=== PATIENT | male | born 1985 | race Caucasian/White ===

== ENCOUNTER 2017-05-02 19:37 | Emergency (ER) | payer BC, OTHER ==
[~2017-05-02] VITALS: Ht 172.7 cm; Wt 90.1 kg
[2017-05-02 19:39] VITALS: BP 138/78; PULSE 110; TEMP 37.1; O2SAT 97; Ht 172.7 cm; Wt 90.1 kg
[2017-05-02] MEDS ORDERED: CEFDINIR 300 MG CAP PO STA (20:01)
[2017-05-02] MEDS ORDERED: CIPROFLOXACIN HCL 0.3% OP SOLN 2.5 ML BTL OP ONE (20:15)
[2017-05-02] MEDS ORDERED: CIPR0.3S OP (20:32)
[2017-05-02] MEDS ORDERED: CEFD300C2 PO (20:32)
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
== END 2017-05-02 20:47 | disposition home or self-care (01) ==
LOC: C.EDB 19:38 → C.EDD 20:47
DX: H66.90 Otitis media, unspecified, unspecified ear (principal); H10.9 Unspecified conjunctivitis; F17.200 Nicotine dependence, unspecified, uncomplicated

== ENCOUNTER 2017-07-04 15:55 | Emergency (ER) | payer BC ==
[~2017-07-04] VITALS: Ht 172.7 cm; Wt 91.9 kg
[2017-07-04 16:06] VITALS: TEMP 36.8; Ht 172.7 cm; Wt 91.9 kg
[2017-07-04] MEDS ORDERED: ONDANSETRON INJ 2 MG/ML 2 ML VIAL IV STA (16:23)
[2017-07-04] MEDS ORDERED: MoRPHine SULFATE 10 MG/ML CARP/VIAL IV STA ×2 (16:23→18:15)
[2017-07-04] MEDS ORDERED: SODIUM CHLORIDE 0.9% 1000ML 1,000 ML IV STA ×2 (16:23→18:15)
[2017-07-04 16:47] LABS: BASO % 0.2 %; BASO ABS # 0.02 K/uL (0-0.2); EOS % 0.2 %; EOS ABS # 0.02 K/uL (0-0.5); HEMATOCRIT 44.5 % (42-52); HEMOGLOBIN 15.9 g/dL (14.0-18.0); IG# 0.02 K/uL (0.00-0.02); LYMPH % 6.7 %; LYMPH ABS # 0.67 K/uL (1.2-3.4); MEAN CELL VOLUME 82.7 fL (80-100); MEAN CORPUSCULAR HEMOGLOBIN 29.6 pg (25-34); MEAN CORPUSCULAR HGB CONC 35.7 g/dl (32-36); MEAN PLATELET VOLUME 9.4 fL (7.4-10.4); MONO % 7.3 %; MONO ABS # 0.73 K/uL (0.11-0.59); NEUT % 85.4 %; PLATELET COUNT 229 K/uL (130-400); RED CELL DISTRIBUTION WIDTH CV 12.6 % (11.5-14.5); RED CELL DISTRIBUTION WIDTH SD 37.7 fL (36.4-46.3); WHITE BLOOD COUNT 10.06 K/uL (4.8-10.8)
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
[2017-07-04 17:23] LABS: CALCIUM 8.8 mg/dl (8.5-10.1); CREATININE 1.2 mg/dl (0.60-1.40); POTASSIUM 3.8 mmol/L (3.5-5.1); TOTAL PROTEIN 7.6 gm/dl (6.4-8.2)
[2017-07-04] MEDS ORDERED: OPTIRAY 320 IV PRN (18:15)
--- NOTE | 2017-07-04 20:08 | DIAGNOSTIC IMAGING REPORT ---
CT OF THE ABDOMEN AND PELVIS WITH CONTRAST CLINICAL HISTORY: Right-sided abdominal pain. COMPARISON STUDY: None. TECHNIQUE: Following IV administration of 113 mL of Optiray-320, axial images of the abdomen and pelvis were obtained from the lung bases to the proximal femurs. Images were reviewed in the axial, sagittal, and coronal planes. IV contrast was administered without complication. A dose lowering technique was utilized adhering to the principles of ALARA. CT DOSE: 978.29 mGycm FINDINGS: Lung bases are clear. There is suspected fatty infiltration of the liver. The spleen, adrenal glands and kidneys are normal. There is mild infiltration adjacent to the pancreatic head and uncinate process. There are no peripancreatic fluid collections. There is no biliary or pancreatic ductal dilatation. There is no evidence for a bowel obstruction. The appendix is normal. There is no lymphadenopathy. No suspicious osseous lesions are present. No pneumatosis, free air or portal venous gas is present. IMPRESSION: 1. Mild peripancreatic infiltration centered on the pancreatic head consistent with acute pancreatitis. 2. Normal appendix. No bowel obstruction. 3. Suspected fatty infiltration of the liver. Electronically signed by: Shamar Hickey M.D. 07/04/2017 8:07 PM Dictated Date/Time: 07/04/2017 8:03 PM
[2017-07-04] MEDS ORDERED: OXYCODONE HCL IR 5 MG TAB (IMMEDIATE RELEASE) PO STA (20:57)
[2017-07-04] MEDS ORDERED: KETOROLAC TROMETHAMINE 30 MG/ML VIAL IV STA (20:58)
[2017-07-04] MEDS ORDERED: ONDA4TAB10 SL (21:47)
[2017-07-04] MEDS ORDERED: NAPR500T3 PO (21:47)
[2017-07-04] MEDS ORDERED: OXYC1TAB3 PO (21:47)
[2017-07-04] MEDS ORDERED: OXYCODONE IR HOME PACK PO ONE (22:00)
[2017-07-04] MEDS ORDERED: ONDANSETRON HOME PACK 4MG OD TAB PO ONE (22:00)
[2017-07-04 22:08] VITALS: BP 124/81; PULSE 91; O2SAT 94
== END 2017-07-04 22:17 | disposition home or self-care (01) ==
LOC: C.EDB 15:57 → C.EDC 22:17
DX: K85.90 Acute pancreatitis without necrosis or infection, unspecified (principal); F17.200 Nicotine dependence, unspecified, uncomplicated; Z88.0 Allergy status to penicillin; Z88.2 Allergy status to sulfonamides